=== PATIENT | female | born 1980 | race Caucasian/White ===

== ENCOUNTER 2017-08-13 11:41 | Emergency (ER) | payer OTHER ==
[~2017-08-13] VITALS: Ht 167.6 cm; Wt 165.0 kg
[~2017-08-13 11:41] MED LIST: MOTRIN
[2017-08-13] MEDS ORDERED: GLIP10 PO (11:49)
[2017-08-13] MEDS ORDERED: METF500T6 PO (11:49)
[2017-08-13] MEDS ORDERED: ATOR10TA84 PO (11:49)
[2017-08-13 11:53] LABS: GLUCOSE,POINT OF CARE 203 MG/DL (70-110)
[2017-08-13 12:27] LABS: BASOPHILS % (AUTO) 0.7 % (0.0-2.0); EOSINOPHILS % (AUTO) 1.2 % (1.0-6.0); HEMATOCRIT 38.1 % (36-46); HEMOGLOBIN 12.7 g/dL (12.0-16.0); LYMPHOCYTES # (AUTO) 2.3 K/uL (1.0-4.8); LYMPHOCYTES % (AUTO) 21.1 % (22.0-44.0); MEAN CORPUSCULAR HEMOGLOBIN 26.9 pg (26.0-34.0); MEAN CORPUSCULAR HGB CONC 33.3 G/dL (31.0-37.0); MEAN CORPUSCULAR VOLUME 81 fL (80-100); MONOCYTES # (AUTO) 0.6 K/uL (0.1-1.0); MONOCYTES % (AUTO) 5.3 % (2.0-9.0); NEUTROPHILS # (AUTO) 7.9 K/uL (1.8-7.7); NEUTROPHILS % (AUTO) 71.7 % (40.0-70.0); PLATELET COUNT (AUTO) 291 K/uL (150-450); RED BLOOD CELL COUNT(AUTO) 4.71 MIL/uL (4.00-5.20); RED CELL DISTRIBUTION WIDTH 14.4 % (11.5-14.5)
[2017-08-13 12:41] LABS: ANION GAP 11 mmol/L (8-16); CALCIUM, TOTAL 8.8 mg/dL (8.8-10.5); CARBON DIOXIDE 26 mmol/L (22-29); CHLORIDE 101 mmol/L (98-107); CREATININE 0.76 mg/dL (0.60-1.30); GLOMERULAR FILTR. RATE CALC > 60 mL/min (>60); GLUCOSE,RANDOM 198 mg/dL (70-110); POTASSIUM 3.6 mmol/L (3.5-5.1); SODIUM SERUM 138 mmol/L (136-145); UREA NITROGEN, BLOOD 12 mg/dL (7-18)
[2017-08-13 12:47] LABS: ALANINE AMINOTRANSFERASE 67 U/L (12-78); ALKALINE PHOSPHATASE 112 U/L (46-116); ASPARTATE AMINOTRANSFERASE 70 U/L (15-37); BILIRUBIN,TOTAL 0.5 mg/dL (0.1-1.0); TOTAL PROTEIN, SERUM 8.8 g/dL (6.4-8.2)
[2017-08-13 13:18] LABS: ACETONE,BLOOD NEGATIVE (NEGATIVE)
[2017-08-13 15:18] LABS: APPEARANCE,URINE CLEAR (CLEAR); GLUCOSE, URINE (UA) NEGATIVE (NEGATIVE); OCCULT BLOOD,URINE NEGATIVE (NEGATIVE); PH,URINE 5.5 (5.0-8.0); PROTEIN,URINE NEGATIVE (NEGATIVE)
[2017-08-13 15:19] LABS: BILIRUBIN,URINE NEGATIVE (NEGATIVE); KETONES,URINE NEGATIVE (NEGATIVE); LEUKOCYTE ESTERASE ,URINE NEGATIVE (NEGATIVE); NITRATE,URINE NEGATIVE (NEGATIVE); UROBILINOGEN,URINE 0.2 mg/dL (<=1.0)
[2017-08-13 15:38] VITALS: BP 133/60
== END 2017-08-13 15:39 | disposition home or self-care (01) ==
LOC: EMS 11:43
DX: N39.0 Urinary tract infection, site not specified (principal); E11.9 Type 2 diabetes mellitus without complications; E78.00 Pure hypercholesterolemia, unspecified; Z88.5 Allergy status to narcotic agent
CPT/HCPCS: 99284

== ENCOUNTER 2024-02-29 12:51 | Emergency (ER) | payer OTHER ==
[~2024-02-29] VITALS: Ht 167.6 cm; Wt 144.1 kg
[~2024-02-29 12:51] MED LIST changes: +ATOR10TA PO; +GLIP10TA17 PO; +METF-1211 PO; -MOTRIN
[2024-02-29 13:05] VITALS: TEMP 98.2
[2024-02-29] MEDS ORDERED: TRAM50TA5 PO (14:49)
[2024-02-29] MEDS ORDERED: PENI500T2 PO (14:49)
[2024-02-29] MEDS ORDERED: IBUP-1554 PO (14:49)
[2024-02-29] MEDS ORDERED: OMEP20 PO (14:49)
[2024-02-29] MEDS ORDERED: ONDA-104 PO (14:49)
[2024-02-29] MEDS ORDERED: METF-1185 PO (14:51)
[2024-02-29 15:30] VITALS: BP 140/86; PULSE 90; RESP 20; O2SAT 96
== END 2024-02-29 16:01 | disposition home or self-care (01) ==
LOC: EMS 12:51
DX: K08.89 Other specified disorders of teeth and supporting structures (principal); E11.65 Type 2 diabetes mellitus with hyperglycemia; E78.00 Pure hypercholesterolemia, unspecified; Z88.5 Allergy status to narcotic agent; Z79.84 Long term (current) use of oral hypoglycemic drugs; Z91.148 Patient's other noncompliance with medication regimen for other reason; Z79.899 Other long term (current) drug therapy
CPT/HCPCS: 99283; Z7502